=== PATIENT | female | born 1935 | race Caucasian/White ===

== ENCOUNTER → 2017-02-28 | Outpatient (CLI) | payer MEDICARE, OTHER ==
[2015-12-03 23:00] VITALS: BP 142/84
[~2017-02-28] MED LIST: ALEN70TA5 PO; ALPR0.254 PO; ATOR10TA60 PO; CALC-128 PO; CHOL10003 PO; CHOL200027 PO; METH5TAB6 PO; MULT1TAB52 PO; OMEP40CA5 PO; POTA10TA12 PO; QUIN20TA7 PO; TRIA1CAP3 PO; ZOLP5TAB5 PO
--- NOTE | 2017-02-28 18:19 | KCIC ---
Bilateral digital screening mammograms: Reason for examination: Routine screening. History of right breast cancer with lumpectomy. Comparison is made to previous studies dated 01/17/2016 12/23/2014. The skin and nipples show no acute abnormalities. No abnormal axillary lymph nodes are seen. The breast parenchyma shows scattered fibroglandular density. (Breast density: Category B.) There are postop changes in the right breast. There are no new dominant masses, suspicious calcifications or architectural distortions. Impression: Postoperative changes in the right breast. No evidence of new or recurrent malignancy. Recommend routine screening. BI-RADS Category 2: Benign. "Our facility is accredited by the [employer]ammography [employer]." This patient's information has been entered into a reminder system for the patient to be notified with the results of her examination and a target date for the next mammogram. Electronically signed by: Uma Mak MD (02/28/2017 6:16 PM)
== END | disposition home or self-care (01) ==
LOC: KCIC MAMMO 12:49
PROVIDERS: ATTEND Family Medicine
DX: Z12.31 Encounter for screening mammogram for malignant neoplasm of breast (principal); Z85.3 Personal history of malignant neoplasm of breast
CPT/HCPCS: G0202; 77067

== ENCOUNTER → 2017-03-07 | Outpatient (CLI) | payer MEDICARE, OTHER ==
[2015-12-03 23:00] VITALS: BP 142/84
--- NOTE | 2017-03-07 12:00 | KCIC ---
CT HEAD INDICATION: Memory loss, unsteady gait, dizziness, hypertension COMPARISON: None Available. TECHNIQUE: 5 mm contiguous axial images were obtained from the skull base to the vertex in both bone and soft tissue algorithm. Exposure: One or more of the following individualized dose reduction techniques were utilized for this examination: 1. Automated exposure control 2. Adjustment of the mA and/or kV according to patient size 3. Use of iterative reconstruction technique FINDINGS: Moderate bilateral fibroglandular marilee hepatis is likely chronic small vessel ischemic disease. No evidence of acute intracranial hemorrhage. No extra-axial fluid collections. No mass effect or midline shift. Ventricular size is appropriate. Basal cisterns are patent. No fractures identified.Longoria-white differentiation is preserved.Globes and orbits are within normal limits. Paranasal sinuses and mastoid air cells are clear. IMPRESSION: No acute intracranial findings. Electronically signed by: Javad Auguste MD (03/07/2017 11:57 AM)
== END | disposition home or self-care (01) ==
LOC: KCIC CT 09:39
PROVIDERS: ATTEND Family Medicine
DX: R41.3 Other amnesia (principal); R42 Dizziness and giddiness; I10 Essential (primary) hypertension
CPT/HCPCS: 70450

== ENCOUNTER → 2017-03-14 | Outpatient (CLI) | payer MEDICARE, OTHER ==
[2015-12-03 23:00] VITALS: BP 142/84
--- NOTE | 2017-03-14 12:17 | RAD ---
Indication: Sclerotic lesions noted on x-ray. The patient does have a history of breast carcinoma and lumpectomy in 2007. 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 No prior bone scans are available for comparison. No prior radiographs are available for comparison. The abnormal x-rays are not available for comparison. There is normal uptake of activity by the axial and appendicular skeleton. There is uptake by both kidneys with excretion into the urinary bladder. There is mild uptake in an upper thoracic vertebral body, consistent with the chronic compression fracture treated with kyphoplasty. No acute compression fracture is identified. No other abnormal foci are identified to suggest osseous metastatic disease or occult fracture. Impression: Mild uptake within upper thoracic vertebral body, likely T5 from prior compression fracture and kyphoplasty. The study is otherwise unremarkable. No findings to suggest osseous metastatic disease are identified.
== END | disposition home or self-care (01) ==
LOC: NM 07:50
PROVIDERS: ATTEND Family Medicine
DX: M53.84 Other specified dorsopathies, thoracic region (principal); M89.9 Disorder of bone, unspecified; Z85.3 Personal history of malignant neoplasm of breast; Z98.890 Other specified postprocedural states
CPT/HCPCS: 78306; 96374; A9503

== ENCOUNTER → 2017-10-26 | Outpatient (CLI) | payer MEDICARE, OTHER ==
[2017-10-26] MEDS: IOHEXOL 300 MG/ML 100ML VIAL. IV ×2 (10:11)
[2017-10-26 10:12] LABS: ISTAT CREATININE 1.1 mg/dL (0.6-1.1)
== END | disposition home or self-care (01) ==
LOC: KCIC CT 09:29
DX: I25.10 Atherosclerotic heart disease of native coronary artery without angina pectoris (principal); I70.0 Atherosclerosis of aorta; K44.9 Diaphragmatic hernia without obstruction or gangrene; Z85.3 Personal history of malignant neoplasm of breast
CPT/HCPCS: 71260; 82565; Q9967

== ENCOUNTER → 2018-03-04 | Outpatient (CLI) | payer MEDICARE, OTHER | END | disposition home or self-care (01) | LOC: KCIC MAMMO 14:18 | DX: Z12.31 Encounter for screening mammogram for malignant neoplasm of breast (principal); Z85.3 Personal history of malignant neoplasm of breast | CPT/HCPCS: 77067 ==

== ENCOUNTER → 2018-03-13 | Outpatient (CLI) | payer MEDICARE, OTHER | END | disposition home or self-care (01) | LOC: KCIC MAMMO 09:53 | DX: R92.8 Other abnormal and inconclusive findings on diagnostic imaging of breast (principal); I10 Essential (primary) hypertension | CPT/HCPCS: 76641; 77065 ==

== ENCOUNTER → 2018-04-23 | Outpatient (CLI) | payer MEDICARE, OTHER ==
[2018-04-23] MEDS: IOHEXOL 300 MG/ML 100ML VIAL. IV (10:27)
[2018-04-23 10:29] LABS: ISTAT CREATININE 0.8 mg/dL (0.6-1.1)
== END | disposition home or self-care (01) ==
LOC: KCIC CT 09:42
DX: R91.8 Other nonspecific abnormal finding of lung field (principal); I25.10 Atherosclerotic heart disease of native coronary artery without angina pectoris; I10 Essential (primary) hypertension
CPT/HCPCS: 71260; 82565; Q9967

== ENCOUNTER → 2018-08-20 | Outpatient (CLI) | payer MEDICARE, OTHER ==
[2015-12-03 23:00] VITALS: BP 142/84
[~2018-08-20] MED LIST changes: +QUIN20TA17 PO; -QUIN20TA7 PO
--- NOTE | 2018-08-20 15:07 | KCIC ---
Left breast diagnostic digital mammograms: Reason for examination: Follow-up parenchymal density. Comparison is made to previous studies dated 03/13/2018 and 03/04/2018. Interpretation was made with the benefit of CAD. The skin and nipple show no abnormalities. No abnormal axillary lymph nodes are seen. The breast parenchyma shows scattered fibroglandular density. (Breast density: Category B.) There continues to be some subtle nodularity at the 10:00 B position of the left breast which has not changed. There are no new dominant masses, suspicious calcifications or architectural distortions. Impression: Subtle nodularity persists in the 10:00 B position. Ultrasound to follow. BI-RADS Category 0: Incomplete. Needs additional imaging evaluation. Left breast ultrasound: Comparison is made to previous study dated 03/13/2018. Ultrasound examination was performed in the area of mammographic concern. In the 10:00 position 5 cm from the nipple, there is a small 3.1 mm fibrocystic type lesion. There is also a small 4.8 mm lipomatous lesion at the 10:30 position 5.5 cm from the nipple. No other cystic or solid lesions are seen. IMPRESSION: Benign-appearing fibrocystic type lesion at the 10:00 position 5 cm from the nipple which probably corresponds to the area of mammographic concern. No suspicious abnormality seen. Recommend reevaluation in 6 months at the time of bilateral mammograms. BI-RADS Category 3: Probably Benign. "Our facility is accredited by the [employer] Mammography Program." This patient's information has been entered into a reminder system for the patient to be notified with the results of her examination and a target date for the next mammogram. Electronically signed by: Uma Mak MD (08/20/2018 3:03 PM) [facility]4
== END | disposition home or self-care (01) ==
LOC: KCIC MAMMO 12:42
PROVIDERS: ATTEND Family Medicine
DX: N64.89 Other specified disorders of breast (principal)
CPT/HCPCS: 76641; 77065

== ENCOUNTER → 2018-10-16 | Outpatient (CLI) | payer MEDICARE, OTHER ==
[2015-12-03 23:00] VITALS: BP 142/84
--- NOTE | 2018-10-16 14:15 | KCIC ---
CT maxillofacial without contrast 10/16/2018 CLINICAL INDICATION: Chronic sinusitis. COMPARISON: None. TECHNIQUE: Multiple CT images of the maxillofacial were obtained without contrast. *One or more of the following individualized dose reduction techniques were utilized for this examination: 1. Automated exposure control. 2. Adjustment of the mA and/or kV according to patient size. 3. Use of iterative reconstruction technique. FINDINGS: Patchy and confluent periventricular white matter low-attenuation. Mild prominence of ventricles and subarachnoid spaces consistent with age-related involutional changes. Bilateral lens surgery. Exophytic soft tissue thickening emanating from the skin of the right nostril series 2/image 63. The intraconal fat is preserved. The extraocular muscles are symmetric. No significant paranasal sinus mucosal thickening. The ostiomeatal units are patent. The retropharyngeal maxillary fat is preserved. No sinus wall dehiscence or abnormal thickening. IMPRESSION: 1. Paranasal sinuses are well aerated without significant thickening or air-fluid levels. 2. Minimal exophytic soft tissues thickening from the right nostril. Clinical correlation is recommended. Electronically signed by: Abelardo Redmond MD (10/16/2018 2:10 PM) [facility]
== END | disposition home or self-care (01) ==
LOC: KCIC CT 13:05
PROVIDERS: ATTEND Otolaryngology
DX: J01.41 Acute recurrent pansinusitis (principal); J32.0 Chronic maxillary sinusitis; J32.1 Chronic frontal sinusitis; J32.2 Chronic ethmoidal sinusitis; J32.3 Chronic sphenoidal sinusitis
CPT/HCPCS: 70486

== ENCOUNTER → 2019-02-12 | Outpatient (CLI) | payer MEDICARE, OTHER ==
[2015-12-03 23:00] VITALS: BP 142/84
[~2019-02-12] MED LIST changes: -ALEN70TA5 PO; +ALEN70TA6 PO; +ZOLPIDEM 5 MG TABLET. PO ONE
--- NOTE | 2019-02-13 19:06 | SLEEP ---
DATE OF STUDY: 02/12/2019 SLEEP STUDY ATTENDING PHYSICIAN: Dr. Boo. The patient is an 83-year-old who weighs 169 pounds with a BMI of 30. The patient's Trezevant score was 4. The patient has a history of sleep apnea and for which she has been on CPAP. She was referred for a titration study with BiPAP. During the night study, the patient spent 436 minutes in bed and slept for 269 minutes with a low sleep efficiency of 62%. Sleep latency was 164 minutes with a REM latency of 158 minutes. Overall, sleep architecture showed increased stage 1 sleep, normal stage 2 sleep, increased slow wave and normal REM sleep. EKG monitoring revealed an average heart rate of 68 beats per minute. No arrhythmias observed. PLMS were seen at an index of 30 per hour and 3 per hour caused EEG arousals. The patient was started on BiPAP at a pressure of 15/10 and titrated up to 28/15, a backup rate of 10 was also added. However, best results were seen at a BiPAP pressure of 24/14 without the backup rate. The patient slept for 136 minutes. The patient's AHI was 6.6 per hour, mostly from the leak. Oxygen saturation remained above 92%. The patient used a medium size full face mask. IMPRESSION: 1. Sleep apnea, diagnosed previously. 2. Moderate periodic limb movements during sleep. RECOMMENDATIONS: 1. BiPAP at 24/14 should be used on a nightly basis. 2. Follow up in 4-6 weeks to assess compliance with BiPAP and to document clinical improvement. 3. Weight loss is advised. 4. Avoid OPHTHALMIC TECHNICIAN depressants. 5. Caution regarding driving until symptoms of sleep apnea resolve with the use of BiPAP. 6. The patient should also be further evaluated for symptoms of restless legs during the day. VINITA GUERRA MD DR: MAYANK/rebel JOB#: [id number] / [id number] WILLIE Bolton
== END | disposition home or self-care (01) ==
LOC: RT 18:09
PROVIDERS: ATTEND Family Medicine
DX: G47.33 Obstructive sleep apnea (adult) (pediatric) (principal)
CPT/HCPCS: 95811

== ENCOUNTER → 2019-03-04 | Outpatient (CLI) | payer MEDICARE, OTHER ==
[2015-12-03 23:00] VITALS: BP 142/84
[~2019-03-04] MED LIST changes: -ZOLPIDEM 5 MG TABLET. PO ONE
--- NOTE | 2019-03-04 13:44 | KCIC ---
Bilateral diagnostic digital mammograms with 3-D tomosynthesis: Reason for examination: Follow-up exam for left breast density. History of right breast cancer with lumpectomy. Comparison is made to previous studies dated back to 12/23/2014. Bilateral mammograms in CC and oblique projections were obtained with 2-D imaging and 3-D tomosynthesis imaging on a Siemens Inspiration unit and reviewed on the workstation. Interpretation was made with the benefit of CAD. The skin and nipples show no abnormalities. No abnormal axillary lymph nodes are seen. The breast parenchyma shows scattered fatty and fibroglandular density. (Breast density: Category B.) There are postop changes at the 12:00 B position of the right breast. There continues be a small parenchymal asymmetry at approximately the central 11:00 B position of the left breast. Further evaluation with ultrasound will follow. There are no other dominant masses, suspicious calcifications or architectural distortion. Impression: Postoperative changes in the right breast. Continued presence of some nodularity in the 11:00 B position of the left breast. Ultrasound to follow. BI-RADS Category 0: Incomplete. Needs additional imaging evaluation. Left breast ultrasound: Comparison is made to previous study dated 03/13/2018. Left whole breast ultrasound including evaluation of all 4 quadrants and the retroareolar and axillary regions of the left breast was performed. In the 10:30 position 5.5 cm from the nipple, there continues to be a hyperechoic lesion consistent with a lipoma measuring 4 mm in greatest dimension. In the 11:30 position 1 cm from the nipple however there is a hypoechoic 1.1 cm nodule with some posterior acoustic shadowing. Further evaluation with ultrasound-guided biopsy is recommended. No other cystic or solid lesions are seen. No abnormal appearing lymph nodes are seen in the axilla. IMPRESSION: 1.1 cm nodule in the 11:30 position 1 cm from the nipple. Malignancy cannot be excluded and further evaluation with ultrasound-guided biopsy is recommended. No abnormal appearing lymph nodes are seen in the axilla. BI-RADS Category 5: Highly suggestive of malignancy. These findings were discussed with the patient and the patient's physician, Dr. Boo, was notified about these findings at 1337 on 03/04/2019. "Our facility is accredited by the [employer] Mammography Program." This patient's information has been entered into a reminder system for the patient to be notified with the results of her examination and a target date for the next mammogram. Electronically signed by: Uma Mak MD (03/04/2019 1:42 PM) [facility]
== END | disposition home or self-care (01) ==
LOC: KCIC MAMMO 09:59
PROVIDERS: ATTEND Family Medicine
DX: N63.22 Unspecified lump in the left breast, upper inner quadrant (principal); N64.89 Other specified disorders of breast; Z85.3 Personal history of malignant neoplasm of breast
CPT/HCPCS: 76641; 77066; G0279; 77062

== ENCOUNTER → 2019-03-25 | Outpatient (CLI) | payer MEDICARE, OTHER ==
[2015-12-03 23:00] VITALS: BP 142/84
--- NOTE | 2019-03-25 10:54 | RAD ---
Examination: US GUID NDL PLACE/ASPI/BX, DIGITAL DIAGNOSTIC LT History: Left breast supra-areolar mass Comparison/Correlation: 03/04/2019 left breast ultrasound exam Findings: Risks and benefits of ultrasound-guided biopsy of the left breast with clip marker placement were discussed with the patient and informed consent was obtained. Pulmonary ultrasound imaging demonstrated the nodule at the 11:30 region. Cleansing with ChloraPrep was performed. Sterile drape was placed. Sterile probe cover and sterile gel were utilized. Lateral approach was utilized. Approximately 10 cc 1 percent lidocaine was administered along the expected course of the biopsy needle. Small scalpel incision was made. An introducer was placed. 12-gauge core biopsy needle was placed via the introducer. 5 passes were made through the mass. 2 of these passes were made with the bevel open. Specimens were placed in a formalin jar and submitted to the lab. Clip marker was placed via the introducer into the mass. A cc and an orthogonal view of the left breast were obtained following clip marker placement. Clip marker is present at the site of the focal asymmetry of question involving the left supra-areolar region. No hematoma. The patient tolerated the procedure well without immediate complications. Impression: Successful ultrasound-guided biopsy of the left breast mass with clip marker placement. Electronically signed by: Chuck Hernández MD (03/25/2019 10:52 AM) [facility]
--- NOTE | 2019-03-27 09:08 | PATHOLOGY ---
[facility] Accession Number: [id number] . 01 Material submitted: . breast - LEFT BREAST, 11:30, 1CMFN. Modifiers: left, 11:00 . 01 Clinical history: . Left breast mass . 02 Diagnosis: Breast mass, left, core needle biopsy: - Stromal fibrosis. - Tiny microcalcifications present focally. - No evidence of atypia or malignancy. . (Please see comment) . (SKM:theresa; 03/26/2019) QMS/03/26/2019 . 02 Comment: This case has also been reviewed by Dr. Sarah Wise M.D., who agrees with the diagnosis. . (SKM:theresa; 03/26/2019) . 02 Electronically signed: . Kna Roy MD, Pathologist NPI- [id number] . 01 Gross description: . The specimen is received in formalin, labeled "Leila Garrison, left breast, 1130, 1 cm from nipple", are three fibrofatty cores and its fragments measuring 1.4 x 1.2 x 1.0 cm in length and up to 0.1 cm in diameter. The specimen is entirely submitted in A1-A3. Specimen excised at: 0900 on 03/25/19, placed in formalin at: 0905 on 03/25/19, formalin exposure: Approximately 13 hours and 35 minutes. ([facility]; 03/25/2019) SHS/SHS . 02 Pathologist provided ICD-10: N60.32 . 02 CPT . 549807 Specimen Comment: A courtesy copy of this report has been sent to Specimen Comment: [phone], , . Specimen Comment: Report sent to ,DR ARELLANO / DR GIBSON Performed at: 01 [facility] [address], [place] [id number] MD Tomasz Rosario MD Phone: [phone] Performed at: 02 [facility] [place] [address], [place] [id number] MD Tylor Gan MD Phone: [phone]
== END | disposition home or self-care (01) ==
LOC: US 07:53
PROVIDERS: ATTEND Surgery
DX: N60.32 Fibrosclerosis of left breast (principal)
CPT/HCPCS: 19083; 77065; 88305; C1713; 19081; 76942

== ENCOUNTER → 2019-06-16 | Outpatient (CLI) | payer MEDICARE, OTHER ==
[2015-12-03 23:00] VITALS: BP 142/84
--- NOTE | 2019-06-16 16:26 | RAD ---
Examination: CT CHEST WO CONTRAST History: Lung nodule Comparison/Correlation: 04/23/2018 CT chest with contrast Findings: Axial images of the chest were obtained without contrast. Sagittal and coronal reformatted images were provided. Coronal arterial calcifications present. Small hiatal hernia. No pneumothorax or pleural effusion. T5 kyphoplasty is present with compression deformity of about 50 percent. This is stable. Minimal linear atelectasis involving the lingula and right middle lobe noted. No infiltrate or pleural effusion. No pneumothorax. Minimal right lower lobe bronchiectasis noted. Partially visualized upper abdomen unremarkable. Cholecystectomy noted. 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 Impression: No suspicious pulmonary nodule. No new pulmonary nodules or new infiltrates. Previously described right lung basilar nodule is not currently seen. Small hiatal hernia. PQRS Compliance Statement: One or more of the following individualized dose reduction techniques were utilized for this examination: 1. Automated exposure control 2. Adjustment of the mA and/or kV according to patient size 3. Use of iterative reconstruction technique Electronically signed by: Chuck Hernández MD (06/16/2019 4:23 PM) [facility]
== END | disposition home or self-care (01) ==
LOC: CT 14:05
PROVIDERS: ATTEND Internal Medicine Critical Care Medicine
DX: I25.10 Atherosclerotic heart disease of native coronary artery without angina pectoris (principal); K44.9 Diaphragmatic hernia without obstruction or gangrene; R91.1 Solitary pulmonary nodule; Z90.49 Acquired absence of other specified parts of digestive tract; J47.9 Bronchiectasis, uncomplicated; I71.4 Abdominal aortic aneurysm, without rupture
CPT/HCPCS: 71250

== ENCOUNTER → 2019-09-24 | Outpatient (CLI) | payer MEDICARE, OTHER ==
[2015-12-03 23:00] VITALS: BP 142/84
[~2019-09-24] MED LIST changes: +OMEP40CA45 PO; -OMEP40CA5 PO; -POTA10TA12 PO; +POTASSIUM CHLO10 ME1 PO
--- NOTE | 2019-09-24 15:13 | RAD ---
DATE: 09/24/2019 EXAM: MAMMO ARGENIS CALIXTO LT, BREAST LEFT HISTORY: Benign left biopsy in March 2019 COMPARISON: 03/04/2019 bilateral diagnostic mammographic exam and left breast ultrasound exam, 03/04/2018 screening mammogram, 02/28/2017 screen mammogram This study was interpreted with the benefit of Computerized Aided Detection (CAD). Breast Density: SCATTERED The breast parenchyma shows scattered fibroglandular densities. Breast parenchyma level B. FINDINGS: Biopsy clip marker is present in the left anterior retroareolar region. No suspicious calcification, mass, or suspicious distortion in the interval. Limited left breast ultrasound exam was performed at 11:30 region 1 cm from the nipple. Mild heterogeneity is present. This is similar upon correlation with previous exam although it is less hypoechoic. No suspicious change. No flow identified. IMPRESSION: Stable BI-RADS CATEGORY: 2 BENIGN FINDING(S) RECOMMENDED FOLLOW-UP: 12M 12 MONTH FOLLOW-UP PQRS compliance statement: Patient information was entered into a reminder system with a target due date for the next mammogram. Mammography is a sensitive method for finding small breast cancers, but it does not detect them all and is not a substitute for careful clinical examination. A negative mammogram does not negate a clinically suspicious finding and should not result in delay in biopsying a clinically suspicious abnormality. "Our facility is accredited by the [employer] Mammography Program."
== END | disposition home or self-care (01) ==
LOC: MAMMO 09:55
PROVIDERS: ATTEND Surgery
DX: R92.8 Other abnormal and inconclusive findings on diagnostic imaging of breast (principal)
CPT/HCPCS: 76641; 77065; G0279; 77061

== ENCOUNTER → 2020-09-27 | Outpatient (CLI) | payer MEDICARE, OTHER ==
[2015-12-03 23:00] VITALS: BP 142/84
[~2020-09-27] MED LIST changes: -ALEN70TA6 PO; +ALEN70TA71 PO; +MULT-445 PO; -MULT1TAB52 PO; -OMEP40CA45 PO; +OMEP40CA7 PO
--- NOTE | 2020-09-30 09:07 | RAD ---
DATE: 09/27/2020 3:15 PM EXAM: MAMMO ARGENIS SCREENING BILATERAL HISTORY: Screening . History of right malignant lumpectomy 2007, and benign left breast biopsy 2018.. COMPARISON: 03/04/2019 Bilateral CC and MLO views of the breasts were performed. Bilateral breast tomosynthesis was performed in CC and MLO projections. This study was interpreted with the benefit of Computerized Aided Detection (CAD). FINDINGS: Breast Density: SCATTERED The breast parenchyma shows scattered fibroglandular densities. Breast parenchyma level B Stable benign postsurgical change in the superior right breast. New benign S shaped biopsy marker in the subareolar left breast. No suspicious masses, microcalcifications or unexplained architectural distortion is present to suggest malignancy in either breast. The visualized axillae are unremarkable. IMPRESSION: No mammographic evidence of malignancy. BI-RADS CATEGORY: 2 BENIGN FINDING(S) RECOMMENDED FOLLOW-UP: 12M 12 MONTH FOLLOW-UP Annual screening mammography is recommended, unless clinically indicated sooner based on symptoms or change in physical exam. PQRS compliance statement: Patient information was entered into a reminder system with a target due date for the next mammogram. Mammography is a sensitive method for finding small breast cancers, but it does not detect them all and is not a substitute for careful clinical examination. A negative mammogram does not negate a clinically suspicious finding and should not result in delay in biopsying a clinically suspicious abnormality. "Our facility is accredited by the [employer] Mammography Program."
== END ==
LOC: MAMMO 14:59
PROVIDERS: ATTEND Family Medicine
DX: Z12.31 Encounter for screening mammogram for malignant neoplasm of breast (principal)
CPT/HCPCS: 77063; 77067

== ENCOUNTER → 2021-03-23 | Outpatient (CLI) | payer MEDICARE, OTHER ==
[2015-12-03 23:00] VITALS: BP 142/84
--- NOTE | 2021-03-23 14:31 | KCIC ---
INDICATION: Screening for osteopenia/osteoporosis. Postmenopausal evaluation. COMPARISON: None. TECHNIQUE: Bone densitometry was performed through the lumbar spine and proximal femur. IMPRESSION: Lumbar Spine: BMD: 0.96 T-Score: -0.8 Range: Lower limits of normal Proximal Femur: BMD: 0.78 T-Score: -1.3 Range: Osteopenic World Health Organization Criteria for Bone Density: T-Score: > -1.0: Normal Range < -1.0 to -2.5: Osteopenic Range < -2.5: Osteoporotic Range Electronically signed by: Sánchez Diehl MD (03/23/2021 2:28 PM) [id number]
== END ==
LOC: KCIC DEXA 12:20
PROVIDERS: ATTEND Family Medicine
DX: M85.88 Other specified disorders of bone density and structure, other site (principal); N95.9 Unspecified menopausal and perimenopausal disorder
CPT/HCPCS: 77080

== ENCOUNTER → 2021-11-01 | Outpatient (CLI) | payer MEDICARE, OTHER ==
[2015-12-03 23:00] VITALS: BP 142/84
[~2021-11-01] MED LIST changes: +METH5TAB30 PO; -METH5TAB6 PO
--- NOTE | 2021-11-01 15:46 | RAD ---
Bilateral digital screening 2-D and 3-D (digital breast tomosynthesis) mammogram: Reason for examination: Routine screening.. Patient has a personal history of right breast carcinoma with lumpectomy in 2008. Benign left breast biopsy in 2019. Comparison: Mammograms from 09/27/2020, 09/24/2019, 03/25/2019. Interpretation was made with the benefit of CAD. FINDINGS: Breast density: Category B. There are scattered areas of fibroglandular density. No suspicious breast mass, malignant appearing calcifications, or architectural distortion is seen. T here are stable post therapeutic changes on the right. Again seen is a biopsy marker left subareolar region. There is unchanged nodularity of breast tissue in this location. Tiny unchanged oval circumsc ribed masses are seen in the inferior aspect of the left breast at middle and posterior depth. IMPRESSION: No evidence of malignancy. Assessment: BI-RADS 2. Benign findings. Recommendation: Routine screening mammograms. The patient will receive a letter with the results in the mail. Patient information will be entered i nto the mammography reminder system with a target recall date for the next mammogram. A reminder matilde er will be generated. Electronically signed by: Rosa Fisher MD (11/01/2021 3:43 PM) [id number]
== END ==
LOC: MAMMO 10:15
PROVIDERS: ATTEND Family Medicine
DX: Z12.31 Encounter for screening mammogram for malignant neoplasm of breast (principal)
CPT/HCPCS: 77063; 77067